=== PATIENT | male | born 1965 | race Native Hawaiian/Other Pacific Islander ===

== ENCOUNTER 2018-05-26 11:11 | Outpatient (CLI) | payer OTHER ==
[~2018-05-26 11:11] MED LIST: AMLO2.5T PO; CARV12.5 PO; IBUPROFEN200 M1 PO; LISI10TA11 PO; OMEPRAZOLE40 MG OR
== END 2018-05-26 19:43 | disposition home or self-care (01) ==
LOC: RAD 11:11
DX: M25.512 Pain in left shoulder (principal)

== ENCOUNTER 2018-11-13 11:54 | Outpatient (CLI) | payer OTHER | END 2018-11-13 22:53 | disposition home or self-care (01) | LOC: RAD 11:54 | DX: Z04.3 Encounter for examination and observation following other accident (principal); S20.20XA Contusion of thorax, unspecified, initial encounter; S40.019A Contusion of unspecified shoulder, initial encounter; S80.02XA Contusion of left knee, initial encounter; S70.02XA Contusion of left hip, initial encounter ==